=== PATIENT | male | born 1990 | race African-American/Black ===

== ENCOUNTER 2024-01-20 13:47 | Emergency (ER) | payer OTHER ==
[2024-01-20 13:59] VITALS: BP 109/77; PULSE 67; RESP 18; TEMP 98.3; BMI 24.2
[2024-01-20] MEDS ORDERED: FAMOTIDINE 20 MG/50 ML IVPB 20 MG/50 ML MG IVPB ONE (14:02)
[2024-01-20] MEDS ORDERED: ONDANSETRON 4 MG/2 ML VIAL ONE ×2 (14:02→15:20)
[2024-01-20] MEDS: ONDANSETRON 4 MG/2 ML VIAL IVPUSH ONE ×2 (14:15→15:20)
[2024-01-20] MEDS: SODIUM CHLORIDE 1,000 ML IV STA ×2 (14:15→15:20)
[2024-01-20] MEDS: FAMOTIDINE 20 MG/50 ML IVPB 20 MG/50 ML MG IVPB ONE (14:23)
[2024-01-20 14:40] LABS: HEMATOCRIT 51.9 % (35.4-49); HEMOGLOBIN 17.1 G/dL (11.7-16.9); MCH 28.9 pg (25.7-33.7); MEAN CELL VOLUME 87.6 fl (80-96); MEAN PLT VOLUME 8.2 fl (7.5-11.1); RBC 5.93 10^6/uL (4.00-5.60); RDW 14.7 % (11.9-15.9); WHITE BLOOD COUNT 7.7 10^3/uL (4.0-10.8)
[2024-01-20 14:47] LABS: ALBUMIN 5.2 g/dl (3.4-5.0); BILIRUBIN,TOTAL 0.7 mg/dl (0.2-1); CALCIUM 10.5 mg/dl (8.5-10.1); CREATININE 1.1 mg/dl (0.6-1.3); POTASSIUM 4.2 mmol/L (3.5-5.1); TOT PROT 8.7 g/dl (6.4-8.2)
[2024-01-20 14:51] LABS: PLATELET ESTIMATE ADEQUATE
[2024-01-20] MEDS ORDERED: ACETAMINOPHEN INJECTION 100 ML IVPB ONE (15:20)
[2024-01-20] MEDS: ACETAMINOPHEN 1000 MG/100 ML BAG IVPB ONE (15:29)
== END 2024-01-20 17:26 | disposition home or self-care (01) ==
LOC: FER 13:47
PROC: 3E033GC Introduction of Other Therapeutic Substance into Peripheral Vein, Percutaneous Approach (ICD-10-PCS; principal; 2024-01-20)
PROC: 3E033GC Introduction of Other Therapeutic Substance into Peripheral Vein, Percutaneous Approach (ICD-10-PCS; 2024-01-20)
PROC: 3E033GC Introduction of Other Therapeutic Substance into Peripheral Vein, Percutaneous Approach (ICD-10-PCS; 2024-01-20)
PROC: 3E0337Z Introduction of Electrolytic and Water Balance Substance into Peripheral Vein, Percutaneous Approach (ICD-10-PCS; 2024-01-20)
DX: R11.2 Nausea with vomiting, unspecified (principal)
CPT/HCPCS: 36415; 80053; 83690; 85027; 99284-25; J0131